=== PATIENT | male | born 1995 | race Caucasian/White ===

== ENCOUNTER 2018-02-25 05:27 | Observation (INO) | payer SELFPAY ==
[2018-02-25] MEDS ORDERED: NA CHLORIDE 0.9% 1,000 ML ONE ×3 (06:12→07:36)
[2018-02-25] MEDS ORDERED: ONDANSETRON 4 MG/2 ML VIAL ONE (06:14)
[2018-02-25 06:29] LABS: Absolute Lymphocytes (CBC) 0.7 K/uL (0.7-4.9); Absolute Monocytes 1.2 K/uL (0.1-1.3); Absolute Neutrophil 17.9 K/uL (1.8-8.0); Basophils % 0.3 % (0-1.3); Lymphocytes % 3.3 % (15.3-44.8); MCH 30.1 pg (27.0-35.0); MCV 87.2 fL (80-100); MPV 9.8 fL (7.6-11.3); Monocytes % 6.2 % (3.3-12.3); RBC Red Blood Cell Count 5.86 M/uL (4.33-5.43)
[2018-02-25 06:55] LABS: Bilirubin Direct 0.2 mg/dL (0-0.2); Bilirubin Total 0.7 mg/dL (0.2-1.0); Potassium 3.6 mmol/L (3.5-5.1); Protein, Total 10.6 g/dL (6.4-8.2)
--- NOTE | 2018-02-25 07:35 | ER ---
Nurse's Notes [facility] Name: Delmar Vaughan Age: 22 yrs Sex: Male : 1995 Arrival Date: 02/25/2018 Time: 05:27 Bed 5 Private MD: Augustin Hernandez Diagnosis: Dehydration;Rhabdomyolysis;Nausea and vomiting Presentation: 02/25 05:38 Presenting complaint: Patient states: "I think I am dehydrated. I have been throwing up jd3 since Wednesday morning and now I am cramping all over.". Transition of care: patient was not received from another setting of care. Onset of symptoms was February 23, 2018. Risk Assessment: Do you want to hurt yourself or someone else? Patient reports no desire to harm self or others. Initial Sepsis Screen: Does the patient meet any 2 criteria? HR > 90 bpm. No. Patient's initial sepsis screen is negative. Does the patient have a suspected source of infection? No. Patient's initial sepsis screen is negative. Care prior to arrival: None. 05:38 Method Of Arrival: Ambulatory j 05:38 Acuity: PHILLIP 3 jd3 Historical: - Allergies: 05:41 No Known Allergies; jd3 - Home Meds: 05:41 None [Active]; jd3 - PMHx: 05:41 None; jd3 - PSHx: 05:41 Tonsillectomy; right pinky fingure sx; jd3 - Immunization history:: Adult Immunizations up to date. - Social history:: Smoking status: Patient uses tobacco products, smokes one-half pack cigarettes per day. - Ebola Screening: : Patient negative for fever greater than or equal to 101.5 degrees Fahrenheit, and additional compatible Ebola Virus Disease symptoms. Screenin:44 Abuse screen: Denies threats or abuse. Nutritional screening: No deficits noted. jd3 Tuberculosis screening: No symptoms or risk factors identified. Fall Risk IV access (20 points). Ambulatory Aid- None/Bed Rest/Nurse Assist (0 pts). Gait- Normal/Bed Rest/Wheelchair (0 pts) Mental Status- Oriented to own ability (0 pts). Total Bailey Fall Scale indicates No Risk (0-24 pts). Assessment: 05:42 General: Appears uncomfortable, Behavior is cooperative, appropriate for age, anxious. jd3 Pain: Complains of pain in generalized Quality of pain is described as aching. Neuro: Level of Consciousness is awake, alert, obeys commands, Oriented to person, place, time, situation, Appropriate for age Moves all extremities. Full function Gait is steady, Speech is normal. Cardiovascular: Heart tones S1 S2 present Capillary refill < 3 seconds Patient's skin is warm and dry. Respiratory: Airway is patent Respiratory effort is even, unlabored, Respiratory pattern is regular, symmetrical, Breath sounds are clear bilaterally. GI: Abdomen is flat, non-distended, Bowel sounds present X 4 quads. Abd is soft and non tender X 4 quads. Reports cramping, nausea, vomiting. : No signs and/or symptoms were reported regarding the genitourinary system. EENT: No signs and/or symptoms were reported regarding the EENT system. Derm: Skin is intact, Skin is dry, Skin is normal, Skin temperature is warm. Musculoskeletal: Circulation, motion, and sensation intact. Range of motion: intact in all extremities. 07:36 Reassessment: Patient appears in no apparent distress at this time. Patient and/or ph family updated on plan of care and expected duration. Pain level reassessed. Patient is alert, oriented x 3, equal unlabored respirations, skin warm/dry/pink. Pt resting quietly, denies pain at this time, reports nausea, states, " It's hu acidy, like heartburn." ERP notified, see SEP. 08:46 Reassessment: Patient appears in no apparent distress at this time. Patient and/or ph family updated on plan of care and expected duration. Pain level reassessed. Patient is alert, oriented x 3, equal unlabored respirations, skin warm/dry/pink. Pt resting quietly, reports that nausea has improved, awaiting room assignment. 09:15 Reassessment: Attempted to call report to floor, receiving nurse unavailable and was ph told that they would call back in 5 min. 09:49 Reassessment: Patient appears in no apparent distress at this time. Patient and/or ph family updated on plan of care and expected duration. Pain level reassessed. Patient is alert, oriented x 3, equal unlabored respirations, skin warm/dry/pink. Report called to [facility], pt waiting to be taken upstairs Patient states feeling better. Vital Signs: 05:41 BP 127 / 94; Pulse 116; Resp 19 S; Temp 97.6(O); Pulse Ox 100% on R/A; Weight 90.72 kg jd3 (R); Height 6 ft. 0 in. (182.88 cm) (R); Pain 8/10; 06:18 BP 123 / 85 Supine; Pulse 96; jd3 06:18 BP 131 / 94 Sitting; Pulse 110; jd3 06:18 BP 122 / 89 Standing; Pulse 137; Resp 19 S; Pulse Ox 97% on R/A; jd3 07:12 BP 144 / 95; Pulse 98; Resp 16; Temp 97.6(O); Pulse Ox 100% on R/A; Pain 5/10; em1 08:00 BP 137 / 87; Pulse 97; Resp 18; Pulse Ox 99% on R/A; ph 09:05 BP 138 / 91; Pulse 97; Resp 18; Temp 97.8; Pulse Ox 100% on R/A; ph 05:41 Body Mass Index 27.12 (90.72 kg, 182.88 cm) j ED Course: 05:27 Patient arrived in ED. am2 05:28 Augustin Hernandez DO is Private Physician. am2 05:38 Delvin Das, RN is Primary Nurse. jd3 05:39 Triage completed. jd3 05:40 Inserted saline lock: 20 gauge in right antecubital area, using aseptic technique. tl2 Blood collected. 05:42 Arm band placed on. jd3 05:44 Patient has correct armband on for positive identification. Bed in low position. Call jd3 light in reach. Side rails up X 1. 06:02 [facility] kb 06:02 Jose Cruz MD is Attending Physician. kb 07:32 EKG done, by air quality technician. reviewed by Mia PINO. at1 07:34 Jose Cruz MD is Hospitalizing Provider. kb 07:34 Augustin Hernandez DO is Hospitalizing Provider. kb 07:38 No provider procedures requiring assistance completed. Patient admitted, IV remains in ph place. 07:59 Patient taken to ultrasound. gloria Administered Medications: 06:14 Drug: NS 0.9% 1000 ml Route: IV; Rate: 1000 ml; Site: right antecubital; tl2 07:38 Follow up: Response: No adverse reaction; IV Status: Completed infusion ph 06:14 Drug: Zofran 4 mg Route: IVP; Site: right antecubital; tl2 07:38 Follow up: Response: No adverse reaction ph 07:35 Drug: NS 0.9% 1000 ml Route: IV; Rate: 1000 ml; Site: right antecubital; ph 08:45 Follow up: Response: No adverse reaction; IV Status: Completed infusion ph 07:49 Drug: ProTONIX 40 mg Route: IVP; Site: right antecubital; ph 08:46 Follow up: Response: No adverse reaction; Nausea is decreased ph 08:45 Drug: NS 0.9% 1000 ml Route: IV; Rate: 1000 ml; Site: right antecubital; ph 09:50 Follow up: Response: No adverse reaction; IV Status: Completed infusion ph 09:50 Not Given (Other Intervention Used): NS 0.9% 1000 ml IV at 125 ml/hr continuous ph Outcome: 07:35 Decision to Hospitalize by Provider. kb 09:49 Admitted to Med/surg accompanied by tech, via wheelchair, room 413, with chart, Report ph called to Suyapa POE 09:49 Condition: stable 09:49 Instructed on the need for admit. 10:17 Patient left the ED. em1 Signatures: Mia Ba, MIGRATORY GAME BIRD BIOLOGIST-Rhea STUBBSP-Aquilino Palmer em1 Paty Cruz, web merchant EKG Tat1 Whitley Garcia ph D, RN RNupre, Jacques jd Knox, Taylor RN RN tl2 Paty Rdoríguez amDelvin Mariee RN RN jd3
--- NOTE | 2018-02-25 07:35 | EDPHYS ---
Physician Documentation [facility] Name: Delmar Vaughan Age: 22 yrs Sex: Male : 1995 Arrival Date: 02/25/2018 Time: 05:27 Bed 5 Private MD: Augustin Hernandez ED Physician Jose Cruz HPI: 02/25 06:07 This 22 yrs old Male presents to ER via Ambulatory with complaints of kb dehydration. 06:07 The patient presents to the emergency department with nausea, vomiting. Onset: The kb symptoms/episode began/occurred yesterday, at 10:00. Possible causes: working in the heat. The symptoms are aggravated by nothing. The symptoms are alleviated by nothing. Associated signs and symptoms: Pertinent positives: nausea, vomiting, cramps "everywhere," hasn't urinated since yesterday, Pertinent negatives: abdominal pain, anorexia, belching, constipation, diarrhea, dysuria, fever, flatulence, GI bleeding, hematuria. Severity of symptoms: At their worst the symptoms were moderate in the emergency department the symptoms are unchanged. The patient has experienced similar episodes in the past, a few times, and the symptoms today are exactly the same. The patient has not recently seen a physician. Historical: - Allergies: 05:41 No Known Allergies; jd3 - Home Meds: 05:41 None [Active]; jd3 - PMHx: 05:41 None; jd3 - PSHx: 05:41 Tonsillectomy; right pinky fingure sx; jd3 - Immunization history:: Adult Immunizations up to date. - Social history:: Smoking status: Patient uses tobacco products, smokes one-half pack cigarettes per day. - Ebola Screening: : Patient negative for fever greater than or equal to 101.5 degrees Fahrenheit, and additional compatible Ebola Virus Disease symptoms. ROS: 06:05 Constitutional: Negative for fever, chills, and weight loss Cardiovascular: Negative kb for chest pain, palpitations, and edema, Respiratory: Negative for shortness of breath, cough, wheezing, and pleuritic chest pain, Back: Negative for injury and pain, : Negative for injury, bleeding, discharge, and swelling, MS/Extremity: Negative for injury and deformity, Skin: Negative for injury, rash, and discoloration, Neuro: Negative for headache, weakness, numbness, tingling, and seizure. 06:05 Abdomen/GI: Positive for nausea and vomiting, Negative for abdominal pain, diarrhea, constipation, abdominal cramps, abdominal distension. Exam: 06:05 Constitutional: This is a well developed, well nourished patient who is awake, alert, kb and in no acute distress. Head/Face: Normocephalic, atraumatic. Chest/axilla: Normal chest wall appearance and motion. Nontender with no deformity. No lesions are appreciated. Cardiovascular: Regular rate and rhythm with a normal S1 and S2. No gallops, murmurs, or rubs. Normal PMI, no JVD. No pulse deficits. Respiratory: Lungs have equal breath sounds bilaterally, clear to auscultation and percussion. No rales, rhonchi or wheezes noted. No increased work of breathing, no retractions or nasal flaring. Abdomen/GI: Soft, non-tender, with normal bowel sounds. No distension or tympany. No guarding or rebound. No evidence of tenderness throughout. Skin: Warm, dry with normal turgor. Normal color with no rashes, no lesions, and no evidence of cellulitis. MS/ Extremity: Pulses equal, no cyanosis. Neurovascular intact. Full, normal range of motion. Neuro: Awake and alert, GCS 15, oriented to person, place, time, and situation. Cranial nerves II-XII grossly intact. Motor strength 5/5 in all extremities. Sensory grossly intact. Cerebellar exam normal. Normal gait. Vital Signs: 05:41 BP 127 / 94; Pulse 116; Resp 19 S; Temp 97.6(O); Pulse Ox 100% on R/A; Weight 90.72 kg jd3 (R); Height 6 ft. 0 in. (182.88 cm) (R); Pain 8/10; 06:18 BP 123 / 85 Supine; Pulse 96; jd3 06:18 BP 131 / 94 Sitting; Pulse 110; jd3 06:18 BP 122 / 89 Standing; Pulse 137; Resp 19 S; Pulse Ox 97% on R/A; jd3 07:12 BP 144 / 95; Pulse 98; Resp 16; Temp 97.6(O); Pulse Ox 100% on R/A; Pain 5/10; em1 08:00 BP 137 / 87; Pulse 97; Resp 18; Pulse Ox 99% on R/A; ph 09:05 BP 138 / 91; Pulse 97; Resp 18; Temp 97.8; Pulse Ox 100% on R/A; ph 05:41 Body Mass Index 27.12 (90.72 kg, 182.88 cm) jd3 MDM: 06:02 Patient medically screened. kb 06:05 Data reviewed: vital signs, nurses notes. Data interpreted: Pulse oximetry: on room air kb is 100 %. Interpretation: normal. 07:33 Counseling: I had a detailed discussion with the patient and/or guardian regarding: the kb historical points, exam findings, and any diagnostic results supporting the discharge/admit diagnosis, lab results, the need for further work-up and treatment in the hospital. Physician consultation: Augustin Hernandez DO was contacted at 07:33, regarding admission, to the telemetry unit. and will see patient in ED, shortly. 02/25 06:05 Order name: Hepatic Function; Complete Time: 07:04 kb 02/25 06:05 Order name: Amylase, Serum; Complete Time: 07:04 kb 02/25 06:05 Order name: Basic Metabolic Panel; Complete Time: 07:04 kb 02/25 06:05 Order name: CBC with Diff; Complete Time: 06:32 kb 02/25 06:05 Order name: Lipase; Complete Time: 07:04 kb 02/25 06:05 Order name: CPK; Complete Time: 07:04 kb 02/25 07:07 Order name: UDS kb 02/25 09:21 Order name: T4 Free; Complete Time: 09:23 EDMS 02/25 09:21 Order name: Thyroid Stimulating Hormone; Complete Time: 09:23 EDMS 02/25 09:31 Order name: US; Complete Time: 09:32 EDMS 02/25 06:05 Order name: IV Saline Lock; Complete Time: 06:06 kb 02/25 06:05 Order name: Labs collected and sent; Complete Time: 06:06 kb 02/25 06:05 Order name: Urine Dipstick-Ancillary (obtain specimen); Complete Time: 10:17 kb 02/25 06:05 Order name: Orthostatics; Complete Time: 06:19 kb 02/25 07:03 Order name: EKG; Complete Time: 07:03 kb 02/25 07:03 Order name: EKG - Nurse/Tech; Complete Time: 07:38 kb 02/25 07:08 Order name: Vital Signs; Complete Time: 07:20 kb Administered Medications: 06:14 Drug: NS 0.9% 1000 ml Route: IV; Rate: 1000 ml; Site: right antecubital; tl2 07:38 Follow up: Response: No adverse reaction; IV Status: Completed infusion ph 06:14 Drug: Zofran 4 mg Route: IVP; Site: right antecubital; tl2 07:38 Follow up: Response: No adverse reaction ph 07:35 Drug: NS 0.9% 1000 ml Route: IV; Rate: 1000 ml; Site: right antecubital; ph 08:45 Follow up: Response: No adverse reaction; IV Status: Completed infusion ph 07:49 Drug: ProTONIX 40 mg Route: IVP; Site: right antecubital; ph 08:46 Follow up: Response: No adverse reaction; Nausea is decreased ph 08:45 Drug: NS 0.9% 1000 ml Route: IV; Rate: 1000 ml; Site: right antecubital; ph 09:50 Follow up: Response: No adverse reaction; IV Status: Completed infusion ph 09:50 Not Given (Other Intervention Used): NS 0.9% 1000 ml IV at 125 ml/hr continuous ph Disposition: 02/25/18 07:35 Hospitalization ordered by Augustin Hernandez for Observation. Preliminary diagnosis are Dehydration, Rhabdomyolysis, Nausea and vomiting. - Bed requested for Telemetry/MedSurg (observation). - Status is Observation. em1 - Condition is Stable. - Problem is new. - Symptoms are unchanged. UTI on Admission? No Addendum: 02/28/2018 17:30 Co-signature as Attending Physician, Jose Cruz MD. g s Signatures: Dispatcher [employer] EDMO Mia Ba, ADRIAN-C PRODUCT DEVELOPMENT DIRECTOR-Aquilino Palmer em1 Whitley Garcia RN RN ph Nhi Desai RN RN tl2 Jose Cruz MD MD gs Davies, Jonathon, RN RN jd3 Aleta Vega4 Corrections: (The following items were deleted from the chart) 02/25 07:35 07:35 Hospitalization Ordered by Augustin Hernandez DO for Observation. Preliminary kb diagnosis is Dehydration; Rhabdomyolysis. Bed requested for Telemetry/MedSurg (observation). Status is Observation. Condition is Stable. Problem is new. Symptoms are unchanged. UTI on Admission? No. kb 09:04 07:35 02/25/2018 07:35 Hospitalization Ordered by Augustin Hernandez DO for Observation. mb4 Preliminary diagnosis is Dehydration; Rhabdomyolysis; Nausea and vomiting. Bed requested for Telemetry/MedSurg (observation). Status is Observation. Condition is Stable. Problem is new. Symptoms are unchanged. UTI on Admission? No. kb 10:17 09:04 02/25/2018 07:35 Hospitalization Ordered by Augustin Hernandez DO for Observation. em1 Preliminary diagnosis is Dehydration; Rhabdomyolysis; Nausea and vomiting. Bed requested for Telemetry/MedSurg (observation). Status is Observation. Condition is Stable. Problem is new. Symptoms are unchanged. UTI on Admission? No. mb4
[2018-02-25] MEDS ORDERED: TRAMADOL HCL 50 MG TAB PO PRN (07:48)
[2018-02-25] MEDS ORDERED: ONDANSETRON 4 MG/2 ML VIAL IV PRN (07:48)
[2018-02-25] MEDS ORDERED: NA CHLORIDE 0.9% 1,000 ML IV ONE (07:48)
[2018-02-25] MEDS ORDERED: PANTOPRAZOLE 40 MG INJ ONE (07:48)
[2018-02-25] MEDS ORDERED: ACETAMINOPHEN 500 MG TAB PO PRN (07:48)
--- NOTE | 2018-02-25 08:00 | P.HP ---
Certification for Inpatient Patient admitted to: Observation With expected LOS: <2 Midnights Patient will require the following post-hospital care: None Practitioner: I am a practitioner with admitting privileges, knowledge of patient current condition, hospital course, and medical plan of care. Services: Services provided to patient in accordance with Admission requirements found in Title 42 Section 412.3 of the Code of Federal Regulations Patient History Date of Service: 02/25/18 Primary Care Provider: none Reason for admission: Nausea and vomiting History of Present Illness: 22-year-old male presented emergency room with nausea and vomiting. Patient reports that he start to have some nausea and vomiting yesterday. He also reported some muscle weakness, fatigue, and achiness. The patient reports that he recently started a new job on Wednesday. Prior to this he was sedentary. 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 He has tried to stay hydrated. Yesterday he was very tired. He also reported some heartburn. He does not believe that he was adequately hydrated yesterday due to the nausea and vomiting. He decided to come into the emergency room for further evaluation. In the ER, vital signs stable. White count 19.9, hemoglobin within normal range. Sodium 132, potassium 3.6, bicarb 20, creatinine 3.9 with a GFR of 19. BUN of 39. Glucose 118. Amylase and LFTs in normal range. CPK elevated at 54. Total protein 10.6. Due to the nature the findings the patient was admitted for further evaluation. In the emergency room he was given 2 L of normal saline. He is to get a another liter. Patient appeared dry and sunburned. Patient did not appear in any distress. Patient admits smoking about a half a pack today in trying to quit. He also smokes marijuana from time to time. Allergies No Known Allergies Allergy (Unverified 12/19/15 13:55) Home medications list reviewed: Yes Home Medications: NK [No Home Meds] 12/19/15 - Past Medical/Surgical History Diabetic: No -: Tobacco abuse -: THC use -: Tonsillectomy and adenoidectomy -: Surgery to the 5th right digit Psychosocial/ Personal History: The patient is single. He has 1 child. He recently was incarcerated but has been out and started a new job recently - Family History Mother -: Diabetes (Grandmother with diabetes) - Social History Smoking Status: Light Tobacco smoker (1-9 cigarettes/day) Counseled patient to stop smoking for: less than 10 minutes Smoking therapy provided: Yes Patient receptive to therapy: Yes Alcohol use: No CD- Drugs: Yes Caffeine use: Yes Place of Residence: Home Review of Systems General: Weakness, Malaise, As per HPI Eyes: Unremarkable ENT: Unremarkable Respiratory: Unremarkable Cardiovascular: Light Headedness, As per HPI Gastrointestinal: Nausea, Vomiting, As per HPI Genitourinary: As per HPI (Poor urination) Musculoskeletal: As per HPI (Muscle aches) Integumentary: As per HPI Neurological: Unremarkable Lymphatics: Unremarkable Physical Examination - Physical Exam General: Alert, In no apparent distress, Oriented x3, Cooperative HEENT: Atraumatic, Normocephalic, PERRLA, Other (Dry mucous membranes. Patient appears sun burned), EOMI Neck: Supple, No Thyromegaly Respiratory: Clear to auscultation bilaterally, Normal air movement Cardiovascular: Normal pulses, Regular rate/rhythm Gastrointestinal: Normal bowel sounds, Soft and benign, Non-distended, No ascites, No tenderness, No masses, No rebound, No guarding Musculoskeletal: No swelling, No contractures, No erythema, No tenderness, No warmth Integumentary: No tenderness/swelling, No erythema, No warmth, No cyanosis, Other (Sunburn noted) Neurological: Normal speech, Normal strength at 5/5 x4 extr, Normal tone, Normal affect Lymphatics: No axilla or inguinal lymphadenopathy - Studies Laboratory Data (last 24 hrs) 02/25/18 06:00: WBC 19.9 H, Hgb 17.6, Hct 51.0 H, Plt Count 320 02/25/18 06:00: Sodium 132 L, Potassium 3.6, BUN 39 H, Creatinine 3.90 H, Glucose 118 H, Total Bilirubin 0.7, AST 29, ALT 24, Alkaline Phosphatase 91, Amylase 56, Lipase 165 Assessment and Plan - Problems (Diagnosis) (1) ARF (acute renal failure) Onset Date: 12/20/15 Current Visit: No Status: Acute Plan: Acute renal failure secondary to rhabdomyolysis and severe dehydration. Will continue with IV fluid boluses of to 3 L then transition to half-normal saline. Will monitor renal function. Will get renal ultrasound. Anticipate discharge in the next 24 hr. Will advance diet as tolerated. Will teach on hydration. (2) Nausea & vomiting Onset Date: 12/20/15 Current Visit: No Status: Acute Plan: Secondary to rhabdomyolysis. Will continue with medication as needed. Continue as above. Qualifiers: Vomiting type: unspecified Vomiting Intractability: unspecified Qualified Code(s): R11.2 - Nausea with vomiting, unspecified (3) Rhabdomyolysis Onset Date: 12/20/15 Current Visit: No Status: Acute Plan: Likely from severe dehydration. Will monitor closely. Continue as above. Qualifiers: Rhabdomyolysis type: non-traumatic Qualified Code(s): M62.82 - Rhabdomyolysis (4) Dehydration Current Visit: Yes Status: Acute Plan: Continue with IV fluid hydration. Will monitor lab. (5) Hyponatremia Current Visit: Yes Status: Acute Plan: Secondary to hypovolemia. Continue as above. (6) Leukocytosis Current Visit: Yes Status: Acute Plan: Likely related to acute renal failure and rhabdomyolysis. Will monitor closely. Continue as above. Qualifiers: Leukocytosis type: unspecified Qualified Code(s): D72.829 - Elevated white blood cell count, unspecified Discharge Plan: Home Plan to discharge in: 24 Hours - Advance Directives Does patient have a Living Will: No Does patient have a Durable POA for Healthcare: No - Code Status/Comfort Care Code Status Assessed: Yes (Patient full code) Time Spent Managing Pts Care (In Minutes): 55
[2018-02-25 09:21] LABS: Thyroid Stimulating Hormone 0.62 uIU/mL (0.36-3.74)
--- NOTE | 2018-02-25 09:31 | RAD REPORT ---
EXAM DESCRIPTION: US - Renal Ultrasound-Complete - 02/25/2018 8:33 am CLINICAL HISTORY: . Acute renal failure COMPARISON: None. FINDINGS: The right kidney measures 12 cm with a mildly increased echotexture. The left kidney measures 12 cm with a mildly increased echotexture. Mild left hydronephrosis is prese nt IMPRESSION: Mildly increased renal echotexture probably indicating parenchymal disease Mild left hydronephrosis
[2018-02-25 10:28] LABS: Barbiturates NEGATIVE (NEGATIVE); Benzodiazepines NEGATIVE (NEGATIVE); Cocaine NEGATIVE (NEGATIVE); METHAMPHETAM POSITIVE (NEGATIVE); Methadone NEGATIVE (NEGATIVE); Opiates NEGATIVE (NEGATIVE); Phencyclidine NEGATIVE (NEGATIVE); THC Cannibis POSITIVE (NEGATIVE)
[2018-02-25 10:47] VITALS: BMI 27.1
[2018-02-25] MEDS: ENOXAPARIN 30 MG/0.3 ML SQ SCH (10:50)
[2018-02-25] MEDS: NACHLORIDE 0.45% 1,000 ML IV SCH ×3 (10:51→23:45)
[2018-02-25] MEDS ORDERED: POTASSIUM 25 MEQ EFFERV TAB PO ONE (11:35)
[2018-02-25 23:20] VITALS: O2SAT 96
[2018-02-26 05:41] LABS: Absolute Lymphocytes (CBC) 1.3 K/uL (0.7-4.9); Absolute Monocytes 0.7 K/uL (0.1-1.3); Absolute Neutrophil 4.2 K/uL (1.8-8.0); Basophils % 0.5 % (0-1.3); Hematocrit 39.5 % (39.6-49.0); Lymphocytes % 20.6 % (15.3-44.8); MCH 30.7 pg (27.0-35.0); MCV 87.3 fL (80-100); MPV 9.6 fL (7.6-11.3); Monocytes % 10.7 % (3.3-12.3); RBC Red Blood Cell Count 4.52 M/uL (4.33-5.43)
[2018-02-26 06:29] LABS: Magnesium 2.6 mg/dL (1.8-2.4); Potassium 4.3 mmol/L (3.5-5.1)
[2018-02-26] MEDS ORDERED: PANTOPRAZOLE 40MG TABLET PO SCH (06:30)
--- NOTE | 2018-02-26 08:36 | EKG ---
Test Date: 2018-02-25 Test Time: 07:21:02 Cable Inspector: MAIDA MEASUREMENT RESULTS: Intervals: Rate: 93 [place]: 138 QRSD: 88 QT: 362 QTc: 450 [place]: P: 63 [place]: 138 QRS: 64 T: 45 INTERPRETIVE STATEMENTS: Normal sinus rhythm Normal ECG Compared to ECG 11/20/2016 08:46:50 Left ventricular hypertrophy no longer present Electronically Signed On 02-26-18 08:35:20 CDT by Jb Pena
[2018-02-26] MEDS: ENOXAPARIN 30 MG/0.3 ML SQ SCH (08:45)
[2018-02-26] MEDS: NACHLORIDE 0.45% 1,000 ML IV SCH (08:46)
[2018-02-26 08:57] VITALS: BP 113/56; TEMP 98.1
--- NOTE | 2018-02-26 09:46 | P.DS ---
Admission Date: 02/25/18 Discharge Date: 02/26/18 Primary Care Provider: none Disposition: ROUTINE DISCHARGE Discharge Condition: GOOD Reason for Admission: Nausea and vomiting Procedures: Renal ultrasound: COMPARISON: None. FINDINGS: The right kidney measures 12 cm with a mildly increased echotexture. The left kidney measures 12 cm with a mildly increased echotexture. Mild left hydronephrosis is present IMPRESSION: Mildly increased renal echotexture probably indicating parenchymal disease Mild left hydronephrosis - Problems (1) ARF (acute renal failure) Onset Date: 12/20/15 Current Visit: No Status: Acute (2) Nausea & vomiting Onset Date: 12/20/15 Current Visit: No Status: Acute Qualifiers: Vomiting type: unspecified Vomiting Intractability: unspecified Qualified Code(s): R11.2 - Nausea with vomiting, unspecified (3) Rhabdomyolysis Onset Date: 12/20/15 Current Visit: No Status: Acute Qualifiers: Rhabdomyolysis type: non-traumatic Qualified Code(s): M62.82 - Rhabdomyolysis (4) Dehydration Current Visit: Yes Status: Acute (5) Hyponatremia Current Visit: Yes Status: Acute (6) Leukocytosis Current Visit: Yes Status: Acute Qualifiers: Leukocytosis type: unspecified Qualified Code(s): D72.829 - Elevated white blood cell count, unspecified (7) Hydronephrosis Current Visit: Yes Status: Acute (8) Tobacco abuse Current Visit: Yes Status: Chronic (9) Tetrahydrocannabinol (THC) use disorder, mild, abuse Current Visit: Yes Status: Chronic (10) Amphetamine use disorder, mild Current Visit: Yes Status: Chronic Brief History of Present Illness: 22-year-old male presented emergency room with nausea and vomiting. Patient reports that he start to have some nausea and vomiting yesterday. He also reported some muscle weakness, fatigue, and achiness. The patient reports that he recently started a new job on Wednesday. Prior to this he was sedentary. 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 He has tried to stay hydrated. Yesterday he was very tired. He also reported some heartburn. He does not believe that he was adequately hydrated yesterday due to the nausea and vomiting. He decided to come into the emergency room for further evaluation. In the ER, vital signs stable. White count 19.9, hemoglobin within normal range. Sodium 132, potassium 3.6, bicarb 20, creatinine 3.9 with a GFR of 19. BUN of 39. Glucose 118. Amylase and LFTs in normal range. CPK elevated at 54. Total protein 10.6. Due to the nature the findings the patient was admitted for further evaluation. In the emergency room he was given 2 L of normal saline. He is to get a another liter. Patient appeared dry and sunburned. Patient did not appear in any distress. Patient admits smoking about a half a pack today in trying to quit. He also smokes marijuana from time to time. Hospital Course: Patient presented with nausea, vomiting, lighthe Patient presented with nausea, vomiting, lightheadedness and muscle aches. Patient found to be severely dehydrated with renal insufficiency and rhabdomyolysis. Patient recently started working. Patient given aggressive IV fluids during his stay. During the course of the hospitalization, patient continue with IV hydration. Renal ultrasound showed mild left hydronephrosis. This is likely from rhabdomyolysis. At discharge renal function back to baseline. At discharge he will need to continue to increase oral intake. Recommendation is to recheck lab-BMP and CPK in 1 week to monitor resolution. Patient may require repeat renal ultrasound at that time to monitor resolution of hydronephrosis as well if lab abnormal. Recommendation is no work for at least 1 week. Patient will need to follow up with his PCP to be released back to work after 1 week. Patient admits tobacco and THC use. Cessation education addressed in detail. Patient understands this. Patient also found to be positive for amphetamines. Patient reports a history of cocaine abuse in the past. Cocaine was not positive on urine drug screen. Cessation of all was highly recommended. Patient understands this. Vital Signs/Physical Exam: Temp Pulse Resp BP Pulse Ox 98.1 F 71 17 113/56 L 98 02/26/18 08:00 02/26/18 08:00 02/26/18 08:00 02/26/18 08:02/26/18 08:00 General: Alert, In no apparent distress, Oriented x3, Cooperative HEENT: Atraumatic, Mucous membr. moist/pink Neck: Supple, No Thyromegaly Respiratory: Clear to auscultation bilaterally, Normal air movement Cardiovascular: Normal pulses, Regular rate/rhythm Gastrointestinal: Normal bowel sounds, Soft and benign, Non-distended, No tenderness, No masses, No rebound, No guarding Musculoskeletal: No erythema, No tenderness, No warmth Integumentary: No tenderness/swelling, No erythema, No warmth, No cyanosis Neurological: Normal speech, Normal strength at 5/5 x4 extr, Normal tone, Normal affect Laboratory Data at Discharge: WBC 6.2 K/uL (4.3-10.9) D 02/26/18 04:04 Hgb 13.9 g/dL (13.6-17.9) D 02/26/18 04:04 Hct 39.5 % (39.6-49.0) L D 02/26/18 04:04 Plt Count 203 K/uL (152-406) D 02/26/18 04:04 Sodium 138 mmol/L (136-145) 02/26/18 04:04 Potassium 4.3 mmol/L (3.5-5.1) 02/26/18 04:04 BUN 14 mg/dL (7-18) D 02/26/18 04:04 Creatinine 1.10 mg/dL (0.55-1.3) D 02/26/18 04:04 Glucose 89 mg/dL (74-106) 02/26/18 04:04 Magnesium 2.6 mg/dL (1.8-2.4) H 02/26/18 04:04 Total Bilirubin 0.7 mg/dL (0.2-1.0) 02/25/18 06:00 AST 29 U/L (15-37) 02/25/18 06:00 ALT 24 U/L (12-78) 02/25/18 06:00 Alkaline Phosphatase 91 U/L (45-117) 02/25/18 06:00 Amylase 56 U/L (25-115) 02/25/18 06:00 Lipase 165 U/L (73-393) 02/25/18 06:00 Home Medications: NK [No Home Meds] 02/25/18 Patient Discharge Instructions: 1. Patient wound need to follow up with his PCP in 1 week to follow up this hospitalization. 2. Patient presented with nausea, vomiting, lightheadedness and muscle aches. Patient found to be severely dehydrated with renal insufficiency and rhabdomyolysis. During the course of the hospitalization, patient continue with IV hydration. Renal ultrasound showed mild left hydronephrosis. This is likely from rhabdomyolysis. At discharge renal function and electrolytes back to baseline. At discharge he will need to continue to increase oral intake. Recommendation is to recheck lab-BMP and CPK in 1 week to monitor resolution. Patient may require repeat renal ultrasound at that time to monitor resolution of hydronephrosis as well if lab abnormal. Recommendation is no work for at least 1 week. Patient will need to follow up with his PCP to be released back to work after 1 week. 3. Patient admits tobacco and THC use. Cessation education addressed in detail. Patient also found to be positive for amphetamines. Cessation of all was highly recommended. Patient understands this. Diet: Regular Activity: Ad ansley Time spent managing pt's care (in minutes): 55
== END 2018-02-26 12:29 | disposition home or self-care (01) ==
LOC: ER 05:27 → ERHOLD 07:40 → 4TH 09:53
PROVIDERS: ADMIT Family Medicine; ATTEND Family Medicine
DX: M62.82 Rhabdomyolysis (principal); N13.30 Unspecified hydronephrosis; E86.0 Dehydration; N28.9 Disorder of kidney and ureter, unspecified; E87.1 Hypo-osmolality and hyponatremia; F17.210 Nicotine dependence, cigarettes, uncomplicated; F15.90 Other stimulant use, unspecified, uncomplicated; F12.10 Cannabis abuse, uncomplicated
CPT/HCPCS: 36415; 76770; 80048; 80076; 80307; 82150; 82550; 83690; 83735; 84439; 84443; 85025; 93005; 96361; 96374; 96375; 99285; C9113; G0378; J1650; J2405; J7030

== ENCOUNTER 2020-07-23 19:54 | Emergency (ER) | payer BC, SELFPAY ==
--- OUTSIDE RECORDS SUMMARY | 2020-07-23 19:56 | XMS REPORT | Continuity of Care Document ---
:1995 Author Organization [facility] t Address [address] [place] [address] [place] [id number] Care Team Providers Name Role Phone Unavailable Unavailable Unavailable Problems This patient has no known problems. Allergies, Adverse Reactions, Alerts This patient has no known allergies or adverse reactions. Medications This patient has no known medications. Procedures This patient has no known procedures. Encounters Start End Encounter Admission Attending Care Care Encounter Source Date/Time Date/Time Type Type Clinicians Facility Department ID 2020-04-05 2020-04-11 Outpatient [facility] [id number] 04:26:00 11:11:00 64 2020-03-04 2020-03-08 Outpatient [facility] [id number] 23:16:00 15:55:00 20 Results This patient has no known results.
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
[2020-07-24 00:54] LABS: Absolute Lymphocytes (CBC) 2.1 K/uL (0.7-4.9); Basophils % 0.6 % (0-1.3); Hematocrit 40.5 % (39.6-49.0); Lymphocytes % 25.7 % (15.3-44.8); MPV 8.3 fL (7.6-11.3); Protime INR 0.89; RBC Red Blood Cell Count 4.53 M/uL (4.33-5.43)
[2020-07-24 01:03] LABS: ALT/SGPT 16 U/L (12-78); AST/SGOT 9 U/L (15-37); Albumin 3.5 g/dL (3.4-5.0); Alkaline Phosphatase 50 U/L (45-117); BUN Blood Urea Nitrogen 10 mg/dL (7-18); Bicarbonate 28 mmol/L (21-32); Bilirubin Total 0.2 mg/dL (0.2-1.0); Glucose Level 125 mg/dL (74-106); Potassium 3.4 mmol/L (3.5-5.1); Protein, Total 7.1 g/dL (6.4-8.2); Sodium Level 142 mmol/L (136-145)
[2020-07-24 03:56] VITALS: TEMP 97.8
[2020-07-24 04:02] VITALS: BP 129/83; O2SAT 100
--- NOTE | 2020-07-24 08:12 | RAD REPORT ---
EXAM DESCRIPTION: [place] Single View07/24/2020 12:19 am CLINICAL HISTORY: Chest pain COMPARISON: none FINDINGS: The lungs appear clear of acute infiltrate. The heart is normal size IMPRESSION: No acute abnormalities displayed
--- NOTE | 2020-07-24 11:59 | RAD REPORT ---
EXAM DESCRIPTION: CT - Head C Spine Mpr Wo Con - 07/24/2020 5:44 am CLINICAL HISTORY: 24 years Male PAIN COMPARISON: None. TECHNIQUE: Contiguous axial CT images obtained through the brain without IV contrast. This exam was performed according to our department optimization program which includes automated exp osure control, adjustment of the mA and/or kv according to patient size and/or use of iterative recon struction technique. FINDINGS: The ventricles and sulci appear unremarkable. No abnormal areas of decreased density are identified. There is acute appearing extra-axial hemorrhage lateral to the right temporal lobe. The hematoma karmen ures 1.4 cm in maximum thickness. There is localized mass effect. No midline shift is identified. The basilar cisterns are well visualized. There is likely minimal extra-axial hemorrhage adjacent to the lateral aspect of the left temporal lo be. Small amount of mucosal thickening/secretions in the maxillary sinuses, inferior frontal sinuses and within some of the ethmoid air cells. Questionable nondisplaced fracture of the right temporal bone visualized on the sagittal images. IMPRESSION: There is an acute appearing extra-axial hemorrhage lateral to the right temporal lobe me asuring 1.4 cm in maximum thickness. There is localized mass effect but no midline shift is identifie d and the basilar cisterns are well visualized. Questionable minimal extra-axial hemorrhage adjacent to the lateral aspect of the left temporal lobe. Questionable nondisplaced fracture of the right temporal bone visualized only on the sagittal images. The findings were called to Dr. Schmitz at 11:24 PM central time. EXAM DESCRIPTION: Head C Spine Mpr Wo Con CLINICAL HISTORY: 24 years Male PAIN COMPARISON: None. TECHNIQUE: Contiguous axial images obtained through the cervical spine without IV contrast. Coronal and sagittal reformatted images obtained. This exam was performed according to our department optimization program which includes automated exp osure control, adjustment of the mA and/or kv according to patient size and/or use of iterative recon struction technique. FINDINGS: Straightening of the normal lordosis. Vertebral body alignment is unremarkable. No acute fractures. IMPRESSION: No acute cervical spinal fracture is identified. Electronically signed by: Lencho Fay MD 07/23/2020 11:30 PM HEAD OF BUSINESS DEVELOPMENT Due to temporary technical issues with the PACS/Fluency reporting system, reports are being signed by the in house radiologist without review as a courtesy to ensure prompt reporting. The interpreting r adiologist is fully responsible for the content of the report.
== END 2020-07-24 03:43 | disposition short-term general hospital (02) ==
LOC: ER 19:54
DX: S06.5X0A Traumatic subdural hemorrhage without loss of consciousness, initial encounter (principal); S02.19XA Other fracture of base of skull, initial encounter for closed fracture; Y04.2XXA Assault by strike against or bumped into by another person, initial encounter; Y93.9 Activity, unspecified; Y92.9 Unspecified place or not applicable; Z20.822 Contact with and (suspected) exposure to COVID-19
CPT/HCPCS: 36415; 70450; 71045; 72125; 80053; 85025; 85610; 86850; 86900; 86901; 99285; U0003